=== PATIENT | female | born 1985 | race Two or more races ===

== ENCOUNTER 2018-02-20 05:27 | Inpatient (IN) | payer OTHER ==
[~2018-02-20] VITALS: Ht 162.6 cm; Wt 78.0 kg
[2018-02-20] MEDS ORDERED: PROPOFOL 200MG/20ML VIAL IV ONE (07:14)
[2018-02-20] MEDS ORDERED: GLYCOPYRROLATE 0.2 MG/ML 2ML VIAL ONE (07:36)
[2018-02-20] MEDS ORDERED: ONDANSETRON HCL 4MG/2ML INJ ONE (09:05)
[2018-02-20] MEDS ORDERED: ONDANSETRON HCL 4MG/2ML INJ IV PRN ×2 (09:15→11:00)
[2018-02-20] MEDS ORDERED: HYDROMORPHONE HCL/PF 2MG/ML CPJ IV PRN ×2 (09:15→11:00)
[2018-02-20] MEDS ORDERED: FENTANYL CITRATE/PF 50MCG/ML 2ML VIAL IV PRN ×2 (09:15→11:00)
[2018-02-20] MEDS ORDERED: KETOROLAC 30MG/ML VIAL IV NR (09:45)
[2018-02-20] MEDS ORDERED: KETOROLAC 30MG/ML VIAL ONE (09:55)
[2018-02-20] MEDS ORDERED: KETOROLAC 30MG/ML VIAL IV ONE (10:00)
[2018-02-20 11:00] VITALS: BP 105/54
[2018-02-20] MEDS ORDERED: CEFAZOLIN 1000MG PREMIX 50 ML IV SCH ×2 (13:00→14:00)
[2018-02-20] MEDS ORDERED: KETOROLAC 30MG/ML VIAL IV PRN (15:30)
== END 2018-02-20 17:30 | disposition home or self-care (01) | DRG 781 ==
LOC: ER 08:04 → 7EST PP/OB 11:11
PROVIDERS: ADMIT Acupuncturist; ATTEND Acupuncturist
PROC: 0UVC7ZZ Restriction of Cervix, Via Natural or Artificial Opening (ICD-10-PCS; principal; 2018-02-20 07:30)
DX: O23.512 Infections of cervix in pregnancy, second trimester (principal); O99.282 Endocrine, nutritional and metabolic diseases complicating pregnancy, second trimester; E03.9 Hypothyroidism, unspecified; Z3A.18 18 weeks gestation of pregnancy
CPT/HCPCS: 99285; J0690; J1885; J2405; J2704; J3490